=== PATIENT | female | born 1970 | race Caucasian/White ===

== ENCOUNTER 2024-09-30 14:25 | Emergency (ER) | payer BC, SELFPAY ==
[2024-09-30 14:30] VITALS: BP 117/79
[2024-09-30] MEDS: TYLENOL 650 MG PO (15:13)
--- NOTE | 2024-09-30 15:31 | ED.GENMED ---
History of Present Illness
General
Chief Complaint: Head Injury
Source: patient
Exam Limitations: none
Time Seen by Provider: 09/30/24 15:00
History of Present Illness
History of Present Illness:
54-year-old female presents for evaluation of head injury. She was stepping over her dog gate and tripped and fell and hit her left side of her head on the hardwood floor. She may have lost consciousness for couple seconds. She notes headache and
dizziness. She denies neck pain. She is not anticoagulated. No other complaints at this time.
Phy Exam
Physical Exam
Physical Exam:
General: Well-appearing female no acute respiratory distress
HEENT: Normocephalic contusion noted to the left lateral eyebrow. Pupils equal round reactive to light TMs normal
Neurologic alert and oriented extract motions are intact conversing appropriate normal gait good strength to the upper and lower extremities
Musculoskeletal exam: Cervical spine nontender
Extremities: No cyanosis
Course
Orders/Labs/Results
Orders:
Orders
09/30/24 14:[address] [CT Head W/o Iv Contrast] Urgent
Comment:
Reason For Exam: left side head pain
09/30/24 15:06
Acetaminophen [Tylenol] 650 mg PO NOW STA
Vital Signs
Initial and Last Documented VS:
Initial Vital Signs
Temp Pulse Resp BP Pulse Ox
98.9 F 79 18 117/79 99
09/30/24 14:30 09/30/24 14:30 09/30/24 14:30 09/30/24 14:30 09/30/24 14:30
Last Documented Vital Signs
Temp Pulse Resp BP Pulse Ox
98.9 F 79 18 117/79 99
09/30/24 14:30 09/30/24 14:30 09/30/24 14:30 09/30/24 14:30 09/30/24 14:30
MDM/Problems Addressed
Differential Diagnosis Includes:
Head injury questionable loss conscious. She notes severe headache normal neurologic exam: CT ordered to evaluate for fracture or intracranial hemorrhage
Tylenol ordered for pain
*Critical Care Note
Total Time (30-74mins, 75-104mins- exclusive of procedures): Not Applicable
Update Note
Update Note:
CT without acute finding. Patient reassured. Concussion precautions given. Stable for discharge
ED Attending Note
-
Portions of this chart may have been created with voice recognition software.� Occasional wrong word or��sound alike� substitutions may have occurred due to the inherent limitations of voice recognition software.
Discharge Plan
Departure
Patient Disposition: Home (Routine Discharge)
Date of Disposition: 09/30/24
Time of Disposition: 16:52
Patient with high blood pressure during this ER visit?: No
Discharge Problem:
Head injury
Instructions: Concussion, Adult (DC)
Referrals:
UNKNOWN - PT DOES,NOT KNOW [Family Provider] -
Activity Restrictions/Additional Instructions:
Rest. Avoid excessive physical or cognitive activity. Use Tylenol or ibuprofen for. You may ice to the sore spot. Return if worse otherwise follow-up with your
Interventions
Interventions:
*Risk Screen - Suicide Last Done: 09/30/24 14:30
*General Assessment Last Done: 09/30/24 14:30
*Neglect/Abuse Screening Last Done: 09/30/24 14:30
*ED- Fall Risk Assessment Last Done: 09/30/24 14:30
*ED COVID-19 Vaccine History Last Done: 09/30/24 14:30
ED- Neurological Assessment Last Done: 09/30/24 15:02
Discharge Date and Time
Print Language: SPANISH
== END 2024-09-30 17:29 | disposition home or self-care (01) ==
LOC: EMR 14:25
PROVIDERS: EMERGENCY PHYSICIAN Student in an Organized Health Care Education/Training Program
DX: S09.90XA Unspecified injury of head, initial encounter (principal); W01.0XXA Fall on same level from slipping, tripping and stumbling without subsequent striking against object, initial encounter
CPT/HCPCS: 99284; 70450